=== PATIENT | female | born 1955 | race Caucasian/White ===

== ENCOUNTER 2017-12-10 13:10 | Outpatient (CLI) | payer OTHER ==
[2017-12-10] MEDS ORDERED: GADOPENTETATE DIMEGLUMINE 5 ML VIAL IVP ONE ×2 (13:36→14:11)
[2017-12-10] MEDS ORDERED: IOTHALAMATE MEGLUMINE 50 ML VIAL ONE (13:36)
[2017-12-10] MEDS ORDERED: BUFFERED LIDOCAINE 10 ML SYRINGE IU ONE (14:11)
[2017-12-10] MEDS ORDERED: IOTHALAMATE MEGLUMINE 50 ML VIAL IVP ONE (14:11)
--- NOTE | 2017-12-10 17:50 | MRI Report ---
EXAM: RIGHT HIP MRI ARTHROGRAM WITH CONTRAST EXAM DATE: 12/10/2017 03:10 PM. CLINICAL HISTORY: Right hip pain. COMPARISON: None. TECHNIQUE: Multiplanar, multisequence T1-weighted and fluid-sensitive, small orcph-ti-biry sequences of the hip and large bamlj-cr-dddz sequences of the pelvis after an arthrographic injection of dilute gadolinium, dictated under a separate exam. Other: None. FINDINGS: Bones: Abnormal signal seen in the anterior superior weight-bearing aspect of the femoral head and th e acetabulum. No fractures. Right Hip: No acetabular retroversion. Slightly increased femoral head/neck offset. No loose bodies. Small joint effusion. Significant loss of articular cartilage on both sides of the joint, subchondral cystic changes also seen. Marginal arthrosis also identified. There is also some mild remodeling of the femoral head and weightbearing aspect of the bony acetabulum. Full-thickness anterior superior la bral tear. No prior labral cyst. The ligamentum teres is intact. The alpha angle is 68 degrees. Later al centered edge angle is 49 degrees. Other Joints: The visualized lumbar spine, sacroiliac joints, symphysis pubis, and contralateral hip are unremarkable. Musculature: No edema or fatty atrophy. The gluteus medius and minimus tendons are normal. The visual ized hamstring tendons are normal. The ischiofemoral space is normal. Pelvic Cavity: The visualized viscera are unremarkable. No lymphadenopathy. No free fluid in the pelv is. Other: The visualized sciatic nerves are unremarkable. No bursitis. The subcutaneous tissues are unre markable. IMPRESSION: 1. Slightly increased femoral head/neck offset. Significant loss of articular cartilage in both sides of the joint, subchondral cystic changes, subjacent marrow edema on both sides of the hip joint, ful l-thickness anterior superior labral tear, some bony remodeling of the joint also identified. Kellgre n-Nael grade 4. 2. Elevated alpha angle at 68 degrees, lateral center edge angle is borderline at 49 degrees. [facility] MUSCULOSKELETAL RADIOLOGY SECTION Referring Provider Line: [phone] SITE ID: [id number]
--- NOTE | 2017-12-10 18:30 | XRAY Report ---
FLUOROSCOPICALLY-GUIDED RIGHT HIP INJECTION FOR MR ARTHROGRAM: 12/10/2017 CLINICAL INDICATION: Right hip pain. FINDINGS: Following obtaining informed consent, the patient's right hip was prepped and draped in the usual sterile fashion. The skin and soft tissues were anesthetized with lidocaine. A spinal needle was inserted into the right hip joint, and following confirmation of needle positioning, a combination of iodinated contrast, dilute gadolinium, and lidocaine was injected intraarticularly. The patient tolerated the procedure well. No immediate complications. Spot image reveals no evidence of contrast extravasation. IMPRESSION: SUCCESSFUL RIGHT HIP INJECTION FOR MR ARTHROGRAM. FLUOROSCOPY TIME: 47 seconds; 1 spot image obtained. TD: 12/10/2017 18:29
== END 2017-12-10 13:11 | disposition home or self-care (01) ==
LOC: DI 13:10
PROVIDERS: ATTEND Family Medicine
DX: S73.191A Other sprain of right hip, initial encounter (principal); M24.151 Other articular cartilage disorders, right hip
CPT/HCPCS: 27093; 73722; 77002; Q9961

== ENCOUNTER 2018-10-12 17:10 | Emergency (ER) | payer OTHER ==
--- NOTE | 2018-10-12 17:39 | ED Physician Documentation ---
History of Present Illness - Stated complaint Stated Complaint: PER DR SIBLEY, POSS BLOOD CLOT - Chief complaint Chief Complaint: Ext Problem - History obtained from History obtained from: Patient, Family - History of Present Illness Timing: How many days ago (several) Pain level max: 5 Pain level now: 5 Improved by: rest Worsened by: walking - Additonal information Additional information: Patient is a 63-year-old female presents to the emergency department with right lower extremity pain for the past few days. Her primary care provider wanted her to have an ultrasound but the ultrasound department at the [facility] was closed so she came here for her ultrasound. She has no chest pain. No shortness of breath. No swelling. No recent trauma. No prolonged immobilization. She does have arthritis in the right hip and states that she has been walking "funny" and thinks that is why her leg is hurting. Review of Systems Constitutional: denies: Fever Cardiac: denies: Chest pain / pressure Respiratory: denies: Dyspnea GI: denies: Vomiting Musculoskeletal: denies: Neck pain, Back pain Neurologic: denies: Focal weakness, Numbness PD PAST MEDICAL HISTORY - Past Medical History Cardiovascular: Hypertension Respiratory: Asthma Neuro: None Endocrine/Autoimmune: None GI: None WINCH OPERATOR: None : None HEENT: None Psych: None Musculoskeletal: Osteoarthritis Derm: None - Past Surgical History Past Surgical History: No - Present Medications Home Medications: Ambulatory Orders Medication Instructions Recorded Confirmed Hydrocodone/Acetaminophen 1 - 2 each PO Q6H PRN #14 tablet 10/12/18 [Hydrocodon-Acetaminophen 5-325] - Allergies Allergies/Adverse Reactions: Allergies Allergy/AdvReac Type Severity Reaction Status Date / Time Penicillins Allergy Unknown Verified 10/12/18 17:19 Sulfa (Sulfonamide Allergy Hives Verified 10/12/18 17:19 Antibiotics) - Social History Does the pt smoke?: No Smoking Status: Never smoker Does the pt drink ETOH?: No PD ED PE NORMAL - Vitals Vital signs reviewed: Yes - General General: Alert and oriented X 3, No acute distress - HEENT HEENT: Moist mucous membranes - Cardiac Cardiac: RRR - Respiratory Respiratory: No respiratory distress, Clear bilaterally - Abdomen Abdomen: Soft, Non tender - Back Back: No spinal TTP - Derm Derm: Warm and dry - Extremities Extremities: Other (mild TTP posterior upper R calf. NVI. no significant swelling. no skin changes. ) - Neuro Neuro: Alert and oriented X 3 Results - Vitals Vitals: Oxygen O2 Source Room air - Rads (name of study) duplex US RLE Radiology: Prelim report reviewed, EMP read contemporaneously, See rad report (no DVT) PD MEDICAL DECISION MAKING - ED course Complexity details: reviewed results, considered differential, d/w patient ED course: 63-year-old female with right lower extremity pain. PCP sent her in for an ultrasound of her leg. This is negative. Unclear etiology of her pain, may be related to how she is walking and utilizing her cane, will change her cane to the left hand instead and see if this helps her symptoms. Patient counseled regarding signs and symptoms for which I believe and urgent re-evaluation would be necessary. Patient with good understanding of and agreement to plan and is comfortable going home at this time This document was made in part using voice recognition software. While efforts are made to proofread this document, sound alike and grammatical errors may occur. Departure - Departure Disposition: 01 Home, Self Care Clinical Impression: Leg pain, right Condition: Good Instructions: ED Strain Muscle Ext Follow-Up: YOHAN SIBLEY [Primary Care Provider] - Within 1 week Prescriptions: Hydrocodone/Acetaminophen [Hydrocodon-Acetaminophen 5-325] 1 - 2 each PO Q6H PRN #14 tablet PRN Reason: pain Comments: Return if you worsen. Follow-up with your doctor for further care. Your ultrasound is negative. Do not drink alcohol or drive while on narcotic pain medicine. Note that many narcotic pain relievers also contain tylenol/acetaminophen. Please ensure that your total dose of acetaminophen from all sources does not exceed 3 grams (3000mg) per day. You may constipated on this medication, take a stool softener such as "Colace" twice a day while you are on it. Also recommend a twpl-ios-zwkiyye laxative such as senna or MiraLAX any day that you do not have a bowel movement. If you received narcotic pain medication in the emergency department, do not drive or operate machinery for the next 24 hours. Discharge Date/Time: 10/12/18 20:30
[2018-10-12] MEDS ORDERED: IBUPROFEN 800 MG TABLET PO STA (19:18)
[2018-10-12 20:16] VITALS: BP 133/67
--- NOTE | 2018-10-12 20:16 | Ultrasound Report ---
Reason: RLE swelling, r/o DVT Procedure Date: 10/12/2018 Accession Number: [id number] / [id number] Procedure: US - Duplex Ext Veins Right CPT Code: FULL RESULT: EXAM: RIGHT LOWER EXTREMITY SWELLING LOWER EXTREMITY VENOUS ULTRASOUND EXAM DATE: 10/12/2018 07:58 PM. CLINICAL HISTORY: RLE swelling, r/o DVT. COMPARISON: None. TECHNIQUE: Real-time sonographic vascular imaging was performed by the osha inspector through the lower extremity utilizing both color-flow and Doppler spectral analysis. Multiple policy services representative static images were saved for review. FINDINGS: Common Femoral Vein (CFV): Normal. CFV-GSV Junction: Normal. Profunda Femoral Vein (PFV): Normal. Femoral Vein (FV) Prox: Normal. Femoral Vein (FV) Mid: Normal. Femoral Vein (FV) Dist: Normal. Popliteal Vein: Normal. Posterior Tibial Veins: Normal. Other: None. IMPRESSION: No evidence for deep venous thrombosis. [facility]
== END 2018-10-12 20:30 | disposition home or self-care (01) ==
LOC: ED 17:10
DX: M79.604 Pain in right leg (principal); I10 Essential (primary) hypertension
CPT/HCPCS: 93971; 99283; A9270

== ENCOUNTER 2018-10-20 07:57 | Outpatient (CLI) | payer OTHER ==
--- NOTE | 2018-10-20 12:19 | MRI Report ---
Reason: PAIN IN RIGHT LOWER LEG Procedure Date: 10/20/2018 Accession Number: [id number] / [id number] Procedure: MRI - Knee RT W/O CPT Code: FULL RESULT: EXAM: RIGHT KNEE MRI WITHOUT CONTRAST EXAM DATE: 10/20/2018 09:06 AM. CLINICAL HISTORY: Right knee pain. COMPARISON: Right knee MRI from 08/11/2011. TECHNIQUE: Multiplanar, multisequence T1-weighted and fluid-sensitive sequences of the knee without contrast. Other: None. FINDINGS: Bones and articular cartilage: Focal subcortical marrow edema and questionable nondisplaced fracture at the posterior lateral aspect of the lateral tibial plateau. Small marginal osteophytes at the femoral condyles, tibial plateau, patella, and femoral trochlea. Grade II chondromalacia of the femoral condyles. Grade III-IV chondromalacia at the posterior lateral aspect of the lateral tibial plateau. Grade III-IV chondromalacia at the patella. Tiny subcortical cyst at the patella. Focal grade III-IV chondromalacia at the femoral trochlear groove. Medial Meniscus: The medial meniscus is intact. Lateral Meniscus: There is a new flap tear at the posterior horn. A portion of the posterior horn is displaced posterior inferiorly between the posterior margin of the lateral tibial plateau and the popliteus tendon (sagittal images 16 and 17 and coronal image 24). There is grade 1-2 signal within the posterior horn-body junction of the lateral meniscus. Cruciate Ligaments: The anterior and posterior cruciate ligaments are intact. Collateral Ligaments: The medial collateral and lateral collateral ligamentous structures are intact. Tendons: The quadriceps, patellar, semimembranosus, and popliteus tendons are unremarkable. Musculature: No edema or fatty atrophy. Other: No effusion. Small popliteal cyst. No loose bodies. The medial and lateral retinacula are intact. The subcutaneous tissues and fat pads are unremarkable. IMPRESSION: 1. Focal subcortical marrow edema and questionable nondisplaced, nondepressed fracture at the posterior lateral aspect of the lateral tibial plateau. 2. Tricompartmental osteoarthritis, which has not changed significantly since the previous study. 3. New flap tear at the posterior horn lateral meniscus. A portion of the posterior horn is displaced posterior inferiorly between the posterior margin of the lateral tibial plateau and the popliteus tendon. 4. Small popliteal cyst. [facility] MUSCULOSKELETAL RADIOLOGY SECTION
== END 2018-10-20 07:58 | disposition home or self-care (01) ==
LOC: DI 07:57
PROVIDERS: ATTEND Family Medicine
DX: M17.11 Unilateral primary osteoarthritis, right knee (principal); S83.281A Other tear of lateral meniscus, current injury, right knee, initial encounter; M71.21 Synovial cyst of popliteal space [Baker], right knee

== ENCOUNTER 2019-05-07 02:11 | Emergency (ER) | payer OTHER ==
--- NOTE | 2019-05-07 04:13 | ED Physician Documentation ---
History of Present Illness - Stated complaint Stated Complaint: L LEG PX - Chief complaint Chief Complaint: Ext Problem - History obtained from History obtained from: Patient - History of Present Illness Timing: Enter time (22:00), Today Pain level now: 8 Quality: aching Improved by: rest Worsened by: movement, weight-bearing - Additonal information Additional information: Since 10 PM tonight, patient complains of left leg pain, occurred while at rest at home. She was seated and watching TV, and when she stood up she had left leg pain that has persisted and is exacerbated with any movement. Review of Systems Constitutional: reports: Reviewed and negative Skin: reports: Reviewed and negative Musculoskeletal: reports: Extremity pain. denies: Neck pain, Back pain, Joint pain, Extremity swelling Neurologic: denies: Focal weakness, Numbness PD PAST MEDICAL HISTORY - Past Medical History Cardiovascular: Hypertension Respiratory: Asthma Neuro: None Endocrine/Autoimmune: None GI: None FISH WARDEN: None : None HEENT: None Psych: None Musculoskeletal: Osteoarthritis Derm: None - Past Surgical History Past Surgical History: No - Present Medications Home Medications: Ambulatory Orders Medication Instructions Recorded Confirmed Aspirin [Adult Aspirin Regimen] 81 mg PO DAILY 05/07/19 05/07/19 Meloxicam 15 mg PO DAILY 05/07/19 05/07/19 Oxycodone HCl/Acetaminophen 1 - 2 each PO Q6H PRN #14 tablet 05/07/19 [Percocet 5-325 mg Tablet] amLODIPine [Norvasc] 5 mg PO DAILY 05/07/19 05/07/19 - Allergies Allergies/Adverse Reactions: Allergies Allergy/AdvReac Type Severity Reaction Status Date / Time Penicillins Allergy Unknown Verified 05/07/19 02:29 Sulfa (Sulfonamide Allergy Hives Verified 05/07/19 02:29 Antibiotics) - Social History Does the pt smoke?: No Smoking Status: Never smoker Does the pt drink ETOH?: No Does the pt have substance abuse?: No - Immunizations Immunizations: TDAP current <10years - POLST Patient has POLST: No PD ED PE NORMAL - Vitals Vital signs reviewed: Yes - General General: Alert and oriented X 3, No acute distress, Well developed/nourished - Back Back: No CVA TTP, No spinal TTP - Derm Derm: Normal color, Warm and dry, No rash - Extremities Extremities: No tenderness to palpate, No edema - Neuro Neuro: No motor deficit, No sensory deficit PD ED PE EXPANDED - Extremities Extremities: Limited ROM (left hip, knee), Left hip, Left knee, Pedal Pulses Present, Motor intact, Sensory intact, Vascular intact, Tendon intact. No: Deformity, Tenderness, Swelling Results - Vitals Vitals: Oxygen O2 Source Room air - Rads (name of study) left leg US Radiology: Prelim report reviewed, See rad report PD MEDICAL DECISION MAKING - ED course Complexity details: reviewed results, re-evaluated patient, considered differential, d/w patient Departure - Departure Disposition: 01 Home, Self Care Clinical Impression: Leg pain, left Condition: Good Instructions: ED Acute Pain [facility] Follow-Up: Td Lopez ARNP [Primary Care Provider] - Within 3 Days Prescriptions: Oxycodone HCl/Acetaminophen [Percocet 5-325 mg Tablet] 1 - 2 each PO Q6H PRN #14 tablet PRN Reason: pain Forms: Activity restrictions Discharge Date/Time: 05/07/19 07:31
[2019-05-07] MEDS ORDERED: KETOROLAC 60 MG/2 ML VIAL IM STA (04:26)
--- NOTE | 2019-05-07 06:22 | Ultrasound Report ---
Reason: pain , swelling Procedure Date: 05/07/2019 Accession Number: [id number] / [id number] Procedure: US - Duplex Ext Veins Left CPT Code: FULL RESULT: EXAM: LEFT LOWER EXTREMITY VENOUS ULTRASOUND EXAM DATE: 05/07/2019 06:15 AM. CLINICAL HISTORY: Pain , swelling. COMPARISON: None. TECHNIQUE: Real-time sonographic vascular imaging was performed by the order administrator through the lower extremity utilizing both color-flow and Doppler spectral analysis. Multiple order entry representative static images were saved for review. FINDINGS: Common Femoral Vein (CFV): Normal. CFV-GSV Junction: Normal. Profunda Femoral Vein (PFV): Normal. Femoral Vein (FV) Prox: Normal. Femoral Vein (FV) Mid: Normal. Femoral Vein (FV) Dist: Normal. Popliteal Vein: Normal. Posterior Tibial Veins: Normal. Peroneal Veins: Normal. Other: None. IMPRESSION: No evidence for deep venous thrombosis. [facility]
[2019-05-07] MEDS ORDERED: oxyCODONE 5 MG TABLET PO STA (07:09)
[2019-05-07 07:34] VITALS: BP 168/79
== END 2019-05-07 07:31 | disposition home or self-care (01) ==
LOC: ED 02:11
DX: M79.605 Pain in left leg (principal); I10 Essential (primary) hypertension; Z79.82 Long term (current) use of aspirin
CPT/HCPCS: 93971; 96374; 99284; A9270

== ENCOUNTER 2019-08-04 12:32 | Outpatient (CLI) | payer OTHER ==
--- NOTE | 2019-08-08 08:48 | Mammography Report ---
Reason: SCREENING MAMMO Procedure Date: 08/04/2019 Accession Number: [id number] / [id number] Procedure: MGN - Screening Mammo Dig Bilat CPT Code: Final Report FULL RESULT: EXAM: Screening Mammo Dig Bilat DATE: 08/04/2019 12:54 PM CLINICAL HISTORY: Screening encounter. TECHNIQUE: (B) - Bilateral CC and MLO views were obtained. COMPARISON: 02/04/2018 through 11/01/2008. PARENCHYMAL PATTERN: (F) - The breast(s) demonstrate(s) diffuse fatty replacement. FINDINGS: There are no suspicious masses, calcifications, or areas of distortion. IMPRESSION: Negative examination. BI-RADS category 1. RECOMMENDATION: (ANNUAL) - Recommend routine annual screening mammography. BI-RADS CATEGORY: (1) - Negative. STANDARD QUALIFYING STATEMENTS: 1. This examination was not reviewed with the aid of Computer-Aided Detection (CAD). 2. A negative or benign imaging report should not preclude biopsy if clinically suspicious findings are present. 3. Dense breasts may obscure an underlying neoplasm. 4. This examination was reviewed without the aid of 3D breast imaging (tomosynthesis).
== END 2019-08-04 12:33 | disposition home or self-care (01) ==
LOC: DI.N 12:32
DX: Z12.31 Encounter for screening mammogram for malignant neoplasm of breast (principal)
CPT/HCPCS: 77067

== ENCOUNTER 2020-05-25 12:18 | Outpatient (CLI) | payer MEDICARE, OTHER ==
[2020-05-25 17:56] LABS: BASOPHILS # (AUTO) 0.1 10^3/uL (0.0-0.1); BASOPHILS % (AUTO) 0.7 %; EOSINOPHILS # (AUTO) 0.2 10^3/uL (0.0-0.7); EOSINOPHILS % (AUTO) 2.1 %; LYMPHOCYTES # (AUTO) 1.8 10^3/uL (1.5-3.5); MEAN CORPUSCULAR HEMOGLOBIN 30.1 pg (27.0-31.0); MEAN CORPUSCULAR HGB CONC 31.6 g/dL (32.0-36.0); MEAN CORPUSCULAR VOLUME 95.4 fL (81.0-99.0); MONOCYTES # (AUTO) 0.4 10^3/uL (0.0-1.0); MONOCYTES % (AUTO) 5.5 %; NEUTROPHILS # (AUTO) 4.9 10^3/uL (1.5-6.6); NEUTROPHILS % (AUTO) 67.4 %; PLT - PLATELET COUNT 243 10^3/uL (130-450); RED BLOOD COUNT 4.32 10^6/uL (4.20-5.40); RED CELL DISTRIBUTION WIDTH 13.5 % (12.0-15.0); WHITE BLOOD COUNT 7.3 x10^3/uL (4.8-10.8)
[2020-05-25 17:57] LABS: BILIRUBIN,URINE NEGATIVE (NEGATIVE); GLUCOSE, URINE (UA) NEGATIVE (NEGATIVE); KETONES,URINE (UA) NEGATIVE (NEGATIVE); LEUKOCYTE ESTERASE, URINE NEGATIVE (NEGATIVE); NITRITE,URINE NEGATIVE (NEGATIVE); OCCULT BLOOD,URINE NEGATIVE (NEGATIVE); PROTEIN,URINE NEGATIVE (NEGATIVE); UROBILINOGEN,URINE 0.2 (NORMAL) E.U./dL (NORMAL)
[2020-05-25 18:06] LABS: BACTERIA,URINE Few /HPF (None Seen); CLARITY,URINE CLEAR (CLEAR); RBC,URINE None Seen /HPF (0-5); SQUAMOUS EPITHELIAL CELL,UR MANY Squamous (<= Few)
[2020-05-25 18:24] LABS: ALBUMIN 4.5 g/dL (3.2-5.5); ALBUMIN/GLOBULIN RATIO 1.6 (1.0-2.2); ALKALINE PHOSPHATASE 47 IU/L (42-121); ALT ALANINE AMINOTRANSFERASE 18 IU/L (10-60); AST ASPARTATE AMINOTRANSFERASE 18 IU/L (10-42); BILIRUBIN,TOTAL 0.8 mg/dL (0.2-1.0); BUN - BLOOD UREA NITROGEN 19 mg/dL (6-20); CALCIUM 9.4 mg/dL (8.5-10.3); CARBON DIOXIDE - CO2 29 mmol/L (21-32); CHLORIDE 101 mmol/L (101-111); CHOLESTEROL 209 mg/dL; CREATININE 0.8 mg/dL (0.4-1.0); GLUCOSE 101 mg/dL (70-100); HDL CHOLESTEROL 52 mg/dL; LDL CHOLESTEROL,CALCULATED 145 mg/dL; LDL/HDL RATIO 2.8 (<4.4); SODIUM 137 mmol/L (135-145); TOTAL PROTEIN 7.4 g/dL (6.7-8.2); VLDL CHOLESTEROL 12 mg/dL
[2020-05-25 18:26] LABS: HEMOGLOBIN A1c% 5.6 % (4.27-6.07)
== END 2020-05-25 23:59 | disposition home or self-care (01) ==
LOC: LAB.WCP 12:18
PROVIDERS: ATTEND Family Medicine
DX: Z01.818 Encounter for other preprocedural examination (principal); I10 Essential (primary) hypertension
CPT/HCPCS: 36415; 80053; 80061; 81001; 83036; 83721; 84443; 85025; 87086

== ENCOUNTER 2021-01-14 11:57 | Outpatient (CLI) | payer MEDICARE, OTHER ==
--- NOTE | 2021-01-14 16:20 | XRAY Report ---
PROCEDURE: Ankle 3 View LT INDICATIONS: DEGENERATIVE JOINT DISEASE, L ANKLE TECHNIQUE: 3 views of the ankle were acquired. COMPARISON: None FINDINGS: Bones: No fractures or dislocations. Ankle mortise is normally aligned. No suspicious bony lesions . There is marked pes planus appearance. Prominent midfoot degenerative narrowing is present. Promin ent calcaneal spur. Soft tissues: No tibiotalar joint effusion. Achilles tendon appears normal. IMPRESSION: Prominent pes planus as well as midfoot degenerative change. Reviewed by: Lisa Perez MD on 01/14/2021 4:19 PM PDT Approved by: Lisa Perez MD on 01/14/2021 4:19 PM PDT Station ID: [id number]
--- NOTE | 2021-01-14 16:21 | XRAY Report ---
PROCEDURE: Lumbar Spine 2 View INDICATIONS: PIRIFORMIS SYNDROME, LEFT TECHNIQUE: 3 views of the lumbar spine were acquired. COMPARISON: None. FINDINGS: Bones: 5 pib-jom-ngixalo vertebrae are present. There is trace retrolisthesis of L2 on L3, trace an terolisthesis of L3 on L4. There is overall moderate to severe disc space narrowing from L3-4 through L5-S1, mild throughout the remainder of the lumbar spine. There is severe foraminal narrowing at L4- 5 and L5-S1 as well as mild to moderate at L1-2 and L2-3. No vertebral body compression fractures. N o suspicious bony lesions. Partially visualized right hip arthroplasty is present. Mild appearance o f SI joint narrowing. Soft tissues: Overlying bowel gas pattern is normal. No suspicious soft tissue calcifications. IMPRESSION: Prominent multilevel disc and foraminal changes as above. Reviewed by: Lisa Perez MD on 01/14/2021 4:20 PM PDT Approved by: Lisa Perez MD on 01/14/2021 4:20 PM PDT Station ID: [id number]
--- NOTE | 2021-01-14 16:22 | XRAY Report ---
PROCEDURE: Hip w/Pelvis 1V LT INDICATIONS: PIRIFORMIS SYNDROME, LEFT TECHNIQUE: AP pelvis with lateral view(s) of the left hip(s). COMPARISON: X-ray lumbar spine 01/14/2021 FINDINGS: Bones: No fractures or dislocations. Pelvic ring appears intact. No suspicious bony lesions. Mild appearance of narrowing of the SI joints. Right hip arthroplasty. Degenerative changes are present w ithin the lumbar spine. Mild to moderate arthritic changes present within the left hip. Soft tissues: The visualized bowel gas pattern is normal. No suspicious soft tissue calcifications. IMPRESSION: Degenerative changes within the lower lumbar spine as well as left hip as above. Reviewed by: Lisa Perez MD on 01/14/2021 4:21 PM PDT Approved by: Lisa Perez MD on 01/14/2021 4:21 PM PDT Station ID: [id number]
== END 2021-01-14 11:58 | disposition home or self-care (01) ==
LOC: DI.N 11:57
PROVIDERS: ATTEND Internal Medicine
DX: M19.072 Primary osteoarthritis, left ankle and foot (principal); M21.42 Flat foot [pes planus] (acquired), left foot; M51.36 Other intervertebral disc degeneration, lumbar region; M48.061 Spinal stenosis, lumbar region without neurogenic claudication; M51.37 Other intervertebral disc degeneration, lumbosacral region; M48.07 Spinal stenosis, lumbosacral region; M43.16 Spondylolisthesis, lumbar region; M47.816 Spondylosis without myelopathy or radiculopathy, lumbar region; M16.12 Unilateral primary osteoarthritis, left hip

== ENCOUNTER 2021-05-17 17:50 | Outpatient (CLI) | payer MEDICARE, OTHER ==
--- NOTE | 2021-05-17 18:58 | XRAY Report ---
PROCEDURE: Knee 2 View LT INDICATIONS: UNSPECIFIED MUSCLE AND TENDON STRAIN AT LOWER LEG LEVEL, LEFT TECHNIQUE: 2 views of the left knee(s) were acquired. COMPARISON: None. FINDINGS: Bones: Normal patellar height and position. Moderate osteoarthritis in all 3 compartments of the kne e. No fractures or dislocations. No suspicious bony lesions. Soft tissues: No joint effusion. No suspicious soft tissue calcifications. IMPRESSION: No acute finding. Moderate osteoarthritis. Reviewed by: Dago Kirby MD on 05/17/2021 6:57 PM PDT Approved by: Dago Kirby MD on 05/17/2021 6:57 PM PDT Station ID: [id number]
== END 2021-05-17 23:59 | disposition home or self-care (01) ==
LOC: DI.N 17:50
PROVIDERS: ATTEND Nurse Practitioner
DX: M17.12 Unilateral primary osteoarthritis, left knee (principal)

== ENCOUNTER 2022-02-14 08:47 | Outpatient (CLI) | payer MEDICARE, OTHER ==
--- NOTE | 2022-02-14 10:38 | XRAY Report ---
PROCEDURE: Knee 3 View RT INDICATIONS: KNEE PAIN, RIGHT TECHNIQUE: 3 views of the right knee(s) were acquired. COMPARISON: May 17, 2021. FINDINGS: BONES/JOINT: No acute, displaced fracture or dislocation. Small suprapatellar joint effusion. Moderat e narrowing of the left compartment joint space. Tricompartment osteophytosis, most prominent in the lateral compartment. Patellar enthesophytes are seen. SOFT TISSUES: No significant abnormality. IMPRESSION: 1.No acute osseous abnormality. Reviewed by: Hank Sheridan MD on 02/14/2022 10:37 AM PDT Approved by: Hank Sheridan MD on 02/14/2022 10:37 AM PDT Station ID: [id number]
== END 2022-02-14 08:48 | disposition home or self-care (01) ==
LOC: DI.N 08:47
PROVIDERS: ATTEND Internal Medicine
DX: M25.561 Pain in right knee (principal); I10 Essential (primary) hypertension; E55.9 Vitamin D deficiency, unspecified; Z13.220 Encounter for screening for lipoid disorders; R73.01 Impaired fasting glucose; Z86.59 Personal history of other mental and behavioral disorders
CPT/HCPCS: 36415; 80053; 80061; 82306; 83036; 83721; 84443; 85025

== ENCOUNTER 2022-02-14 08:52 | Outpatient (CLI) | payer MEDICARE, OTHER ==
[2022-02-14 11:47] LABS: BASOPHILS % (AUTO) 0.4 %; EOSINOPHILS # (AUTO) 0.2 10^3/uL (0.0-0.7); HCT - HEMATOCRIT 45.6 % (37.0-47.0); HGB - HEMOGLOBIN 14.9 g/dL (12.0-16.0); LYMPHOCYTES # (AUTO) 1.6 10^3/uL (1.5-3.5); LYMPHOCYTES % (AUTO) 17.9 %; MEAN CORPUSCULAR HEMOGLOBIN 30.3 pg (27.0-31.0); MEAN CORPUSCULAR HGB CONC 32.7 g/dL (32.0-36.0); MEAN CORPUSCULAR VOLUME 92.9 fL (81.0-99.0); MEAN PLATELET VOLUME 9.7 fL (7.9-10.8); MONOCYTES # (AUTO) 0.5 10^3/uL (0.0-1.0); MONOCYTES % (AUTO) 5.1 %; NEUTROPHILS # (AUTO) 6.7 10^3/uL (1.5-6.6); NEUTROPHILS % (AUTO) 74.4 %; PLT - PLATELET COUNT 241 10^3/uL (130-450); RED BLOOD COUNT 4.91 10^6/uL (4.20-5.40); RED CELL DISTRIBUTION WIDTH 13.7 % (12.0-15.0)
[2022-02-14 12:25] LABS: THYROID STIMULATING HORMONE 3.16 uIU/mL (0.34-5.60)
[2022-02-14 12:33] LABS: ALBUMIN 4.6 g/dL (3.2-5.5); ALBUMIN/GLOBULIN RATIO 1.5 (1.0-2.2); ALKALINE PHOSPHATASE 53 IU/L (42-121); ALT ALANINE AMINOTRANSFERASE 19 IU/L (10-60); AST ASPARTATE AMINOTRANSFERASE 19 IU/L (10-42); BILIRUBIN,TOTAL 0.7 mg/dL (0.2-1.0); BUN - BLOOD UREA NITROGEN 25 mg/dL (6-20); CARBON DIOXIDE - CO2 27 mmol/L (21-32); CHLORIDE 103 mmol/L (101-111); CHOL/HDL RATIO 3.3 (<4.4); CHOLESTEROL 245 mg/dL; CREATININE 0.9 mg/dL (0.4-1.0); GFR - MDRD 62 (>89); GLUCOSE 135 mg/dL (70-100); HDL CHOLESTEROL 74 mg/dL; LDL CHOLESTEROL,CALCULATED 158 mg/dL; LDL/HDL RATIO 2.1 (<4.4); POTASSIUM 4.6 mmol/L (3.5-5.0); SODIUM 140 mmol/L (135-145); TOTAL PROTEIN 7.7 g/dL (6.7-8.2); TRIGLYCERIDES 67 mg/dL; VLDL CHOLESTEROL 13 mg/dL
[2022-02-14 12:57] LABS: ESTIMATED AVERAGE GLUCOSE 117 mg/dL (70-100); HEMOGLOBIN A1c% 5.7 % (4.27-6.07)
== END 2022-02-14 08:53 | disposition home or self-care (01) ==
LOC: LAB.N 08:52
PROVIDERS: ATTEND Internal Medicine
DX: I10 Essential (primary) hypertension (principal); E55.9 Vitamin D deficiency, unspecified; Z13.220 Encounter for screening for lipoid disorders; R73.01 Impaired fasting glucose; Z86.59 Personal history of other mental and behavioral disorders
CPT/HCPCS: 36415; 80053; 80061; 82306; 83036; 83721; 84443; 85025

== ENCOUNTER 2022-04-22 15:09 | Outpatient (CLI) | payer MEDICARE, OTHER ==
--- NOTE | 2022-04-29 08:47 | Mammography Report ---
BILATERAL DIGITAL SCREENING MAMMOGRAM 3D/2D: 04/22/2022 CLINICAL: Routine screening. Comparison is made to exams dated: 08/04/2019 mammogram, 02/04/2018 mammogram, 07/30/2015 mammogram, a nd 03/02/2013 mammogram - [facility]. The tissue of both breasts is predominantly f atty. No significant masses, calcifications, or other findings are seen in either breast. There has been no significant interval change. IMPRESSION: NEGATIVE There is no mammographic evidence of malignancy. A 1 year screening mammogram is recommended. Based on the Tyrer Cuzick model (a risk assessment model) the patients lifetime risk is 3.0% and her 10 year risk is 1.6%. According to the ACR, ACS, and NCCN guidelines, an annual breast MRI exam allegra g with mammogram is recommended if the patients lifetime risk is 20% or greater. This exam was interpreted at Station ID: [id number]. NOTE: For mammograms, a report in lay terms will be sent to the patient. Approximately 15% of breast malignancies will not be visualized mammographically. In the management of a palpable breast mass, a negative mammogram must not discourage biopsy of a clinically suspicious lesion. Electronically Signed By: Brett Reyna M.D. [email or web address]:04/28/2022 09:22:42 ACR BI-RADS Category 1: Negative 3341F PARENCHYMAL PATTERN: (F) - The breast(s) demonstrate(s) diffuse fatty replacement. BI-RADS CATEGORY: (1) - 1 RECOMMENDATION: (ANNUAL) - Recommend routine annual screening mammography. [id number] 1 year screening LATERALITY: (B)
== END 2022-04-22 15:10 | disposition home or self-care (01) ==
LOC: DI.N 15:09
DX: Z12.31 Encounter for screening mammogram for malignant neoplasm of breast (principal)

== ENCOUNTER 2023-05-06 11:02 | Outpatient (CLI) | payer MEDICARE, OTHER ==
--- NOTE | 2023-05-07 09:19 | Mammography Report ---
BILATERAL DIGITAL SCREENING MAMMOGRAM 3D/2D: 05/06/2023 CLINICAL: Routine screening. Comparison is made to exams dated: 04/22/2022 mammogram, 08/04/2019 mammogram, 02/04/2018 mammogram, mammogram, and 03/02/2013 mammogram - [facility]. Both breasts are almost entirely fatty (category a/<25% glandular tissue). No significant masses, calcifications, or other findings are seen in either breast. There has been no significant interval change. IMPRESSION: NEGATIVE There is no mammographic evidence of malignancy. A 1 year screening mammogram is recommended. Based on the Tyrer Cuzick model (a risk assessment model) the patients lifetime risk is 2.9% and her 10 year risk is 1.6%. According to the ACR, ACS, and NCCN guidelines, an annual breast MRI exam allegra g with mammogram is recommended if the patients lifetime risk is 20% or greater. This exam was interpreted at Station ID: [id number]. NOTE: For mammograms, a report in lay terms will be sent to the patient. Approximately 15% of breast malignancies will not be visualized mammographically. In the management of a palpable breast mass, a negative mammogram must not discourage biopsy of a clinically suspicious lesion. Electronically Signed By: Araceli [email or web address]:05/06/2023 16:38:16 letter sent: No_Letter ACR BI-RADS Category 1: Negative 3341F PARENCHYMAL PATTERN: (F) - The breast(s) demonstrate(s) diffuse fatty replacement. BI-RADS CATEGORY: (1) - 1 Mammogram [id number] 1 year screening LATERALITY: (B)
== END 2023-05-06 11:03 | disposition home or self-care (01) ==
LOC: DI.N 11:02
PROVIDERS: ATTEND Internal Medicine
DX: Z12.31 Encounter for screening mammogram for malignant neoplasm of breast (principal)

== ENCOUNTER 2023-09-01 11:40 | Outpatient (CLI) | payer MEDICARE, OTHER ==
[2023-09-01 18:04] LABS: BASOPHILS # (AUTO) 0.1 10^3/uL (0.0-0.1); BASOPHILS % (AUTO) 0.7 %; EOSINOPHILS # (AUTO) 0.1 10^3/uL (0.0-0.7); EOSINOPHILS % (AUTO) 1.8 %; HCT - HEMATOCRIT 45.1 % (37.0-47.0); HGB - HEMOGLOBIN 14.1 g/dL (12.0-16.0); LYMPHOCYTES # (AUTO) 1.6 10^3/uL (1.5-3.5); LYMPHOCYTES % (AUTO) 22.5 %; MEAN CORPUSCULAR HGB CONC 31.3 g/dL (32.0-36.0); MEAN PLATELET VOLUME 9.9 fL (7.9-10.8); MONOCYTES # (AUTO) 0.4 10^3/uL (0.0-1.0); MONOCYTES % (AUTO) 5.2 %; NEUTROPHILS # (AUTO) 4.9 10^3/uL (1.5-6.6); NEUTROPHILS % (AUTO) 69.5 %; PLT - PLATELET COUNT 251 10^3/uL (130-450); RED CELL DISTRIBUTION WIDTH 13.3 % (12.0-15.0); WHITE BLOOD COUNT 7.1 x10^3/uL (4.8-10.8)
[2023-09-01 18:10] LABS: CREATININE,URINE 180.2 mg/dL; MICROALBUM/CREATININE RATIO,UR 9.4 ug/mg (<30.0); MICROALBUMIN,URINE 1.7 mg/dL
[2023-09-01 18:14] LABS: ALBUMIN 4.5 g/dL (3.2-5.5); ALBUMIN/GLOBULIN RATIO 1.7 (1.0-2.2); ALKALINE PHOSPHATASE 62 IU/L (42-121); ALT ALANINE AMINOTRANSFERASE 12 IU/L (10-60); AST ASPARTATE AMINOTRANSFERASE 14 IU/L (10-42); BILIRUBIN,TOTAL 0.6 mg/dL (0.2-1.0); BUN - BLOOD UREA NITROGEN 18 mg/dL (6-20); CALCIUM 10.1 mg/dL (8.5-10.3); CARBON DIOXIDE - CO2 32 mmol/L (21-32); CHLORIDE 104 mmol/L (101-111); CHOL/HDL RATIO 3.7 (<4.4); CHOLESTEROL 213 mg/dL; CREATININE 0.8 mg/dL (0.6-1.3); GFR - MDRD 71 (>89); GLUCOSE 103 mg/dL (74-104); HDL CHOLESTEROL 58 mg/dL; LDL CHOLESTEROL,CALCULATED 139 mg/dL; LDL/HDL RATIO 2.4 (<4.4); POTASSIUM 4.4 mmol/L (3.5-4.5); SODIUM 140 mmol/L (135-145); TOTAL PROTEIN 7.2 g/dL (6.4-8.9); TRIGLYCERIDES 78 mg/dL (48-352); VLDL CHOLESTEROL 16 mg/dL
[2023-09-01 18:43] LABS: THYROID STIMULATING HORMONE 2.24 uIU/mL (0.34-5.60)
[2023-09-01 20:19] LABS: ESTIMATED AVERAGE GLUCOSE 111 mg/dL (70-100); HEMOGLOBIN A1c% 5.5 % (4.27-6.07)
== END 2023-09-01 11:41 | disposition home or self-care (01) ==
LOC: LAB.N 11:40
PROVIDERS: ATTEND Internal Medicine
DX: I10 Essential (primary) hypertension (principal); R73.01 Impaired fasting glucose; Z13.220 Encounter for screening for lipoid disorders; E55.9 Vitamin D deficiency, unspecified; Z13.29 Encounter for screening for other suspected endocrine disorder; Z79.899 Other long term (current) drug therapy
CPT/HCPCS: 36415; 80053; 80061; 82043; 82306; 82570; 83036; 83721; 84443; 85025

== ENCOUNTER 2023-10-07 12:15 | Outpatient (CLI) | payer MEDICARE, OTHER ==
--- NOTE | 2023-10-07 14:30 | XRAY Report ---
PROCEDURE: Lumbar Spine 4V INDICATIONS: LUMBAR SPIN DEGENERATIVE JOING DISEASE TECHNIQUE: 3 views of the lumbar spine were acquired. COMPARISON: Lumbar spine radiograph on January 14, 2021. FINDINGS: Bones: 5 [id number] vertebrae are present. No acute fracture or traumatic subluxation. Trace r etrolisthesis of L2 on L3 and trace anterolisthesis of L3 on L4, similar to prior. Similar appearance of degenerative changes with moderate to severe disc space narrowing from L3 through L5 S1 as well a s severe foraminal narrowing at L4-5 and L5-S1. Similar wpzg-ex-wqotzdge foraminal narrowing at L1-L2 and L3-L4. Multilevel facet arthropathy. Dextroconvex curvature centered at L2. No suspicious bony l esions. Partially visualized right hip arthroplasty. Soft tissues: Overlying bowel gas pattern is normal. No suspicious soft tissue calcifications. Loc ation of the abdominal aorta. IMPRESSION: 1.No acute fracture or traumatic subluxation. 2.Multilevel degenerative changes which appear similar to January 14, 2021. Reviewed by: Ivan Roldan MD on 10/07/2023 2:28 PM PST Approved by: Ivan Roldan MD on 10/07/2023 2:28 PM PST Station ID: [id number]
--- NOTE | 2023-10-07 14:35 | XRAY Report ---
PROCEDURE: Hips w/Pelvis 2-3V BL INDICATIONS: LEFT HIP ARTHRITIS TECHNIQUE: 5 views of the hip were acquired. COMPARISON: Left hip radiograph on January 14, 2021. FINDINGS: Bones: No fractures or dislocations. Right total hip arthroplasty is intact with no perihardware ketan ency to suggest hardware loosening. Anatomic alignment. Vlqc-hc-gpazgbwa left hip joint space narrowi ng and juxta-articular osteophytosis, similar to prior. Mild bilateral SI joint degenerative changes. No suspicious bony lesions. Soft tissues: No suspicious soft tissue calcifications or masses. IMPRESSION: 1.Right total hip arthroplasty is intact without complication. 2.Mild to moderate left hip osteoarthritis, similar to January 14, 2021. 3.Please see same day lumbar spine for additional findings. Reviewed by: Ivan Roldan MD on 10/07/2023 2:34 PM PST Approved by: Ivan Roldan MD on 10/07/2023 2:34 PM PST Station ID: [id number]
== END 2023-10-07 12:16 | disposition home or self-care (01) ==
LOC: DI.N 12:15
PROVIDERS: ATTEND Internal Medicine
DX: Z96.641 Presence of right artificial hip joint (principal); M16.12 Unilateral primary osteoarthritis, left hip; M47.816 Spondylosis without myelopathy or radiculopathy, lumbar region

== ENCOUNTER 2024-04-20 09:25 | Outpatient (CLI) | payer MEDICARE, OTHER ==
[2024-04-20 12:44] LABS: BUN - BLOOD UREA NITROGEN 21 mg/dL (6-20); CARBON DIOXIDE - CO2 30 mmol/L (21-32); CHLORIDE 105 mmol/L (101-111); CHOLESTEROL 221 mg/dL; CREATININE 0.8 mg/dL (0.6-1.3); GFR - MDRD 71 (>89); GLUCOSE 121 mg/dL (74-104); HDL CHOLESTEROL 55 mg/dL; LDL CHOLESTEROL,CALCULATED 150 mg/dL; LDL/HDL RATIO 2.7 (<4.4); POTASSIUM 4.5 mmol/L (3.5-4.5); SODIUM 139 mmol/L (135-145); TRIGLYCERIDES 78 mg/dL; VLDL CHOLESTEROL 16 mg/dL
[2024-04-20 12:55] LABS: THYROID STIMULATING HORMONE 2.66 uIU/mL (0.34-5.60)
[2024-04-20 13:39] LABS: ESTIMATED AVERAGE GLUCOSE 117 mg/dL (70-100); HEMOGLOBIN A1c% 5.7 % (4.27-6.07)
== END 2024-04-20 09:26 | disposition home or self-care (01) ==
LOC: LAB.N 09:25
PROVIDERS: ATTEND Internal Medicine
DX: I10 Essential (primary) hypertension (principal); Z13.220 Encounter for screening for lipoid disorders; R73.01 Impaired fasting glucose; F41.9 Anxiety disorder, unspecified
CPT/HCPCS: 36415; 80048; 80061; 83036; 83721; 84443